=== PATIENT | male | born 1990 | race Caucasian/White ===

== ENCOUNTER 2018-06-22 05:41 | Emergency (ER) | payer MEDICAID ==
[~2018-06-22] VITALS: Ht 180.3 cm; Wt 80.1 kg
[2018-06-22 05:43] VITALS: BP 118/69
[2018-06-22] MEDS ORDERED: CEFTRIAXONE 250 MG IM ONE (06:00)
[2018-06-22] MEDS ORDERED: AZITHROMYCIN 500 MG TABLET PO ONE (06:00)
[2018-06-22] MEDS ORDERED: AZITHROMYCIN 250 MG TABLET ONE (06:05)
[2018-06-22] MEDS ORDERED: CEFTRIAXONE 250 MG ONE (06:05)
== END 2018-06-22 06:17 | disposition home or self-care (01) ==
LOC: ED 06:11
DX: A54.9 Gonococcal infection, unspecified (principal); F17.200 Nicotine dependence, unspecified, uncomplicated
CPT/HCPCS: 96372; 99283; J0696